=== PATIENT | female | born 1990 | race Hispanic/Latino ===

== ENCOUNTER 2025-01-08 23:49 | Emergency (ER) | payer SELFPAY ==
[~2025-01-08] VITALS: Ht 160 cm; Wt 72.6 kg
--- NOTE | 2025-01-09 00:17 | NUR ---
PT CARE ASSUMED AT THIS TIME
--- NOTE | 2025-01-09 01:11 | ERN ---
General Chief Complaint: Lower Extremity Pain/Injury Stated Complaint: LEG PAIN Time Seen by MD: 00:22 History of Present Illness Initial Comments 34-year-old female with increasing bilateral hip pain that radiates down the lateral side of her lower extremities to her feet. She is also complaining of weakness and difficulty ambulating. She is continent of stool and urine. She has no abdominal pain. No upper extremity head or neck or back pain. She does have an IUD and is not having menses and does not believe she is . Allergies: Coded Allergies: No Known Drug Allergies (Verified Allergy, Unknown, 12/27/13) Past Medical History Past Medical History: No Pertinent History Past Surgical History: None Constitutional: (-) chills, (-) diaphoresis, (-) fever, (-) malaise, (-) weakness, (-) other documentation EENTM: (-) eye pain, (-) blurred vision, (-) tearing, (-) double vision, (-) ear pain, (-) ear discharge, (-) nose pain, (-) nose congestion, (-) throat pain, (-) Throat swelling, (-) mouth pain, (-) tooth pain, (-) mouth swelling, (-) other documentation Respiratory: (-) cough, (-) orthopnea, (-) short of breath, (-) stridor, (-) wheezing, (-) other documentation Cardiovascular: (-) chest pain, (-) edema, (-) palpitations, (-) syncope, (-) dyspnea on exertion, (-) other documentation Gastrointestinal/Abdominal: (-) nausea, (-) vomiting, (-) diarrhea, (-) abdominal pain, (-) abdominal distention, (-) constipation, (-) rectal bleeding, (-) dark stool/melena, (-) other documentation Genitourinary: (-) vaginal discharge, (-) vaginal bleeding, (-) dysuria, (-) frequency, (-) hematuria, (-) pain, (-) other documentation Musculoskeletal: (-) Neck pain, (-) back pain, (-) Flank Pain, (-) joint pain, (-) joint swelling, (-) muscle pain, (-) muscle stiffness, (-) gout, (-) other documentation Skin: (-) laceration, (-) contusion, (-) abrasion, (-) abscess, (-) rash, (-) change in color, (-) change in hair, (-) change in nails, (-) diaphoresis, (-) dryness, (-) other documentation Neuro: (-) altered mental status, (-) headache, (-) syncope, (-) paralysis, (-) numbness, (-) seizure, (-) pre-existing deficit, (-) tremors, (-) weakness, (-) dizziness, (-) slurred speech, (-) vertigo, (-) other documentation Physical Exam General Appearance: (+) moderate distress General Appearance comment Appears healthy sitting up in the hospital bed. Head/Face Trauma: No Eye: bilateral eye normal inspection, bilateral eye PERRL, bilateral eye EOMI Ear, Nose, Throat: (+) hearing grossly normal, (+) normal ENT inspection Neck: (+) normal inspection, (+) supple, (+) full range of motion Respiratory: (+) chest non-tender, (+) lungs clear Heart: (+) regular, (+) no gallop Vascular: (+) no edema Gastrointestinal: (+) soft, (+) non-tender Extremities Comment Patient has good flexion and extension of her feet and her toes. She has good flexion and extension of her legs at the knee. She seems to have good strength flexing for thighs. She has equal sensation medially and laterally of both lower extremities in the feet calves knees and thighs. She is for sciatica test bilaterally. I asked her to stand up and walk. She still needed support weakness that she thinks she is experiencing when trying to walk. Leaning forward did not decrease the pain or weakness Results Laboratory and Microbiology Lab and Micro Result Laboratory Tests Test 01/09/25 01:19 01/09/25 01:30 White Blood Count 8.8 K/uL (4.8-10.8) Red Blood Count 3.80 MIL/uL (4.00-5.50) L Hemoglobin 11.9 g/dL (12.0-16.0) L Hematocrit 34.3 % (36-48) L Mean Corpuscular Volume 90.3 fL (79-99) Mean Corpuscular Hemoglobin 31.3 pg (27.0-33.0) Mean Corpuscular Hemoglobin Concent 34.7 g/dL (32.0-36.0) Red Cell Distribution Width 13.8 % (11.0-15.5) Platelet Count 288 K/uL (130-400) Mean Platelet Volume 10.6 fL (7.5-10.5) H Immature Granulocyte % (Auto) 0.3 % (0-1) Neutrophils (%) (Auto) 62.5 % (40.0-77.0) Lymphocytes (%) (Auto) 20.5 % (21.0-51.0) L Monocytes (%) (Auto) 10.7 % (3.0-13.0) Eosinophils (%) (Auto) 5.3 % (0.0-8.0) Basophils (%) (Auto) 0.7 % (0.0-5.0) Neutrophils # (Auto) 5.5 K/uL (1.8-7.7) Lymphocytes # (Auto) 1.8 K/uL (1.0-4.8) Monocytes # (Auto) 0.9 K/uL (0.1-1.0) Eosinophils # (Auto) 0.47 K/uL (0.00-0.70) Basophils # (Auto) 0.06 K/uL (0.00-0.20) Absolute Immature Granulocyte (auto 0.03 K/uL (0-1) Nucleated Red Blood Cells 0.0 % (0.0-0.19) Sodium Level 141 mmol/L (136-145) Potassium Level 4.0 mmol/L (3.5-5.1) Chloride Level 104 mmol/L (101-111) Carbon Dioxide Level 29 mmol/L (21-32) Blood Urea Nitrogen 14 mg/dL (7-18) Creatinine 0.8 mg/dL (0.5-1.0) Glomerular Filtration Rate Calc 100 mL/min (>90) Random Glucose 96 mg/dL (70-105) Total Calcium 8.8 mg/dL (8.5-10.1) Urine Color LIGHT-YELLOW (YELLOW) Urine Appearance CLEAR (CLEAR) Urine pH 6.5 (5.0-8.0) Urine Specific [place] 1.028 (1.001-1.031) Urine Protein NEGATIVE mg/dL (NEGATIVE) Urine Glucose (UA) NEGATIVE mg/dL (NEGATIVE) Urine Ketones NEGATIVE mg/dL (NEGATIVE) Urine Occult Blood NEGATIVE (NEGATIVE) Urine Nitrate NEGATIVE (NEGATIVE) Urine Bilirubin NEGATIVE mg/dL (NEGATIVE) Urine Urobilinogen 0.2 mg/dL (0.2-1.0) Urine Leukocyte Esterase NEGATIVE Janet/uL Urine HCG, Qualitative NEGATIVE (NEGATIVE) MDM It seems based on patient's exam that really it is pain that is limiting her ability to walk and makes her feel like she is weak. I will do a CT scan of her lumbar and sacral region with and without contrast. CT scan shows no fractures no subluxations. It does show numerous arthritic and degenerative joint disease changes up and down her spine and pelvis. I discussed this with the patient she will need to see a psychology instructor possibly an orthopedic surgeon. Ketorolac did not help her pain at all I will give her 2 mg of IV morphine. I may have to discharge her on oral narcotics. The morphine helped so I will discharge the patient on low-dose narcotics. ED Course Orders Procedure Category Date Status Time Urinalysis Profile LAB 01/09/25 Complete 01:01 ,Urine Test LAB 01/09/25 Complete 01:01 Cbc With Differential LAB 01/09/25 Complete 01:01 Basic Metabolic Panel LAB 01/09/25 Complete 01:01 Ct Lumbar Spine W/Wo CT 01/09/25 Taken Contrast 01:01 Ketorolac PHA 01/09/25 Complete Tromethamine 30mg/Ml 01:30 Iohexol (Omnipaque) PHA 01/09/25 Complete 02:30 Iohexol (Omnipaque) PHA 01/09/25 Complete 03:03 Ct Pelvis W/Contrast CT 01/09/25 Taken 03:00 Morphine 2mg Syg PHA 01/09/25 Complete (Morphine 2mg Syg) 05:00 Current Medications Medications (Trade) Dose Ordered Sig/[place] Route PRN Reason Start Time Stop Time Status Last Admin Dose Admin Iohexol (Omnipaque) 75 ml STK-MED ONCE IV 01/09/25 02:30 01/09/25 02:30 DC Iohexol (Omnipaque) 75 ml STK-MED ONCE IV 01/09/25 03:03 01/09/25 03:08 DC Ketorolac Tromethamine (toRADol) 30 mg ONCE ONCE IVP 01/09/25 01:30 01/09/25 01:31 DC 01/09/25 01:24 Morphine Sulfate (morPHINE 2MG SYG) 2 mg ONCE ONCE IVP 01/09/25 05:00 01/09/25 05:01 DC 01/09/25 04:43 Vital Signs Date Time Temp Pulse Resp B/P (MAP) Pulse Ox O2 Delivery O2 Flow Rate FiO2 01/09/25 01:55 72 15 109/65 97 Room Air* 0 21 01/09/25 00:20 98.1 75 16 130/71 98 Room Air* 0 21 01/08/25 23:50 98.6 71 19 117/83 99 Room Air 0 DX & DISP Disposition: Discharge Departure Impression: 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 Please return if you find yourself unable to walk again. You will also need to follow up with her primary care physician for pain control. With the oral narcotics you may become constipated and need to take stool softeners I recommend [employer] which you can buy [id number]. Referrals: CHRISTINA WEAVER MD (PCP) KAELYN JONAS MD Jan 09, 2025 01:11
[2025-01-09] MEDS: ketOROlac 30MG VIAL (30MG/ML) IVP ONE (01:24)
[2025-01-09 01:25] LABS: BASOPHILS # (AUTO) 0.06 K/uL (0.00-0.20); BASOPHILS % (AUTO) 0.7 % (0.0-5.0); EOSINOPHILS # (AUTO) 0.47 K/uL (0.00-0.70); EOSINOPHILS % (AUTO) 5.3 % (0.0-8.0); HEMATOCRIT 34.3 % (36-48); IMMATURE GRANULOCYTE ABSOLUTE 0.03 K/uL (0-1); LYMPHOCYTES # (AUTO) 1.8 K/uL (1.0-4.8); LYMPHOCYTES % (AUTO) 20.5 % (21.0-51.0); MEAN CORPUSCULAR HEMOGLOBIN 31.3 pg (27.0-33.0); MEAN CORPUSCULAR HGB CONC 34.7 g/dL (32.0-36.0); MEAN CORPUSCULAR VOLUME 90.3 fL (79-99); MONOCYTES # (AUTO) 0.9 K/uL (0.1-1.0); MONOCYTES % (AUTO) 10.7 % (3.0-13.0); NEUTROPHILS # (AUTO) 5.5 K/uL (1.8-7.7); NEUTROPHILS % (AUTO) 62.5 % (40.0-77.0); PLATELET COUNT (AUTO) 288 K/uL (130-400); RED CELL DISTRIBUTION WIDTH 13.8 % (11.0-15.5); WHITE BLOOD COUNT (AUTO) 8.8 K/uL (4.8-10.8)
[2025-01-09 01:36] LABS: APPEARANCE,URINE CLEAR (CLEAR); BILIRUBIN,URINE NEGATIVE (NEGATIVE); COLOR,URINE LIGHT-YELLOW (YELLOW); GLUCOSE, URINE (UA) NEGATIVE (NEGATIVE); KETONES,URINE NEGATIVE (NEGATIVE); LEUKOCYTE ESTERASE ,URINE NEGATIVE Leu/uL (NEGATIVE); NITRATE,URINE NEGATIVE (NEGATIVE); OCCULT BLOOD,URINE NEGATIVE (NEGATIVE); PH,URINE 6.5 (5.0-8.0); PROTEIN,URINE NEGATIVE (NEGATIVE); UROBILINOGEN,URINE 0.2 mg/dL (0.2-1.0)
[2025-01-09 01:37] LABS: ADD UA MICROSCOPIC NO
[2025-01-09 01:38] LABS: HCG,QUALITATIVE URINE NEGATIVE (NEGATIVE)
[2025-01-09 01:46] LABS: CREATININE 0.8 mg/dL (0.5-1.0)
[2025-01-09] MEDS ORDERED: IOHEXOL-350 75 ML VIAL IV ONE ×2 (02:30→03:03)
[2025-01-09] MEDS: morPHINE 2 MG SYG IVP ONE (04:43)
[2025-01-09] MEDS ORDERED: OXYC10TA48 PO (05:11)
[2025-01-09 05:22] VITALS: BP 120/79; PULSE 72; RESP 17; TEMP 98.4; O2SAT 100
--- NOTE | 2025-01-09 05:38 | NUR ---
AMBULATION ASSESSMENT PT AMBULATED INDEPENDENTLY IN PREPARATION FOR DISCHARGE. NO ASSISTANCE REQUIRED. GAIT STEADY AND COORDINATED WITH NORMAL POSTURE, NO SIGNS OF IMBALANCE OR UNSTEADINESS. PT DENIES ANY PAIN.
--- NOTE | 2025-01-09 08:22 | HMCIMG ---
CT PELVIS W/CONTRAST HISTORY: Pain COMPARISON: None TECHNIQUE: Multiple sequential axial images of the pelvis were obtained from the iliac crests through symphysis pubis. Patient was not given contrast through intravenous route. Oral contrast was not given. FINDINGS: There are normal sized pelvic and inguinal lymph nodes. Fecal material seen throughout the colon. Diverticula are seen within the colon consistent with diverticulosis. No ascites is seen. Atherosclerotic changes are present. There is no evidence of fracture or dislocation. Intrauterine device is seen. Pelvic sidewalls are symmetric bilaterally. Bladder is well distended without wall thickening. IMPRESSION: 1. No evidence of fracture or dislocation is seen. Fecal material is seen in the colon. CT was performed with one or more following dose reduction techniques: automated exposure control, adjustment of the mA and kv according to patient's size, or use of a iterative reconstruction technique.
--- NOTE | 2025-01-09 08:33 | HMCIMG ---
CT LUMBAR SPINE W/WO CONTRAST HISTORY: Bilateral hip pain COMPARISON: None TECHNIQUE: Multiple sequential axial images of the lumbar spine were obtained including post processing sagittal and coronal reconstruction images. Patient was not given contrast through intravenous route. FINDINGS: There is no loss of vertebral height. Evaluation for disc and cord pathology is limited with CT study. No evidence of fracture or dislocation is seen. IMPRESSION: 1. No fracture is seen. CT was performed with one or more following dose reduction techniques: automated exposure control, adjustment of the mA and kv according to patient's size, or use of a iterative reconstruction technique.
== END 2025-01-09 05:43 | disposition home or self-care (01) ==
LOC: EDH 23:49
DX: M47.816 Spondylosis without myelopathy or radiculopathy, lumbar region (principal); M16.0 Bilateral primary osteoarthritis of hip
CPT/HCPCS: 99285; 80048; 85025; 81003; 81025; 36415; 72193; 96374; 96375; 72133; J1885; J2270; Q9967 ×2